=== PATIENT | female | born 1980 | race Caucasian/White ===

== ENCOUNTER 2017-02-20 16:35 | Emergency (ER) | payer MEDICAID ==
[~2017-02-20] VITALS: Ht 167.6 cm; Wt 71.6 kg
[~2017-02-20 16:35] MED LIST: AMOX-291 PO; BENZ200C40 PO; CIPR500T3 PO; COLE1TAB PO; CYCL10TA50 PO; FAMO20TA3 PO; FLUC150T PO; GEMF600T3 PO; INSU100V5; METO10TA82 PO; PENICILLIN VK PO; PROM25TA10 PO
[2017-02-20] MEDS ORDERED: SODIUM CHLORIDE 0.9% 1,000ML IVBOLUS ONE ×2 (17:30→19:30)
[2017-02-20 17:46] LABS: BLOOD UREA NITROGEN 12 mg/dL (7-18)
[2017-02-20] MEDS ORDERED: POTASSIUM CHLORIDE 20 MEQ TAB.ER.PRT ONE (18:59)
[2017-02-20] MEDS ORDERED: INSULIN SINGLE DOSE, ER SQ-INSULIN ONE (18:59)
[2017-02-20] MEDS ORDERED: INSULIN REGULAR 100 UNITS/ML, 3ML VIAL IVPush ONE (19:00)
[2017-02-20] MEDS ORDERED: POTASSIUM CHLORIDE 20 MEQ TAB.ER.PRT PO ONE (19:00)
[2017-02-20 20:31] VITALS: BP 139/96
== END 2017-02-20 20:48 | disposition home or self-care (01) ==
LOC: ED 20:32
DX: E11.65 Type 2 diabetes mellitus with hyperglycemia (principal); Z79.4 Long term (current) use of insulin; I10 Essential (primary) hypertension; E78.00 Pure hypercholesterolemia, unspecified
CPT/HCPCS: 36415; 71010; 80048; 81003; 82010; 82040; 82800; 82962; 83930; 85025; 93005; 96361; 96374; 99285; J7030

== ENCOUNTER 2017-04-02 13:13 | Emergency (ER) | payer MEDICAID ==
[~2017-04-02] VITALS: Ht 167.6 cm; Wt 68.4 kg
[~2017-04-02 13:13] MED LIST changes: -BENZ200C40 PO; +BENZ200C48 PO
[2017-04-02 15:15] VITALS: BP 116/80
== END 2017-04-02 16:48 | disposition home or self-care (01) ==
LOC: ED 15:16
DX: S70.12XA Contusion of left thigh, initial encounter (principal); E11.9 Type 2 diabetes mellitus without complications; K21.9 Gastro-esophageal reflux disease without esophagitis; I10 Essential (primary) hypertension; Z90.49 Acquired absence of other specified parts of digestive tract; Z90.710 Acquired absence of both cervix and uterus; Z88.5 Allergy status to narcotic agent; Z88.8 Allergy status to other drugs, medicaments and biological substances; W22.03XA Walked into furniture, initial encounter; Y93.89 Activity, other specified; Y92.098 Other place in other non-institutional residence as the place of occurrence of the external cause; Y99.8 Other external cause status
CPT/HCPCS: 99284

== ENCOUNTER 2018-03-19 13:50 | Emergency (ER) | payer MEDICAID ==
[~2018-03-19] VITALS: Ht 167.6 cm; Wt 61.0 kg
[2018-03-19] MEDS ORDERED: DIAZEPAM 5 MG TABLET PO ONE (15:00)
[2018-03-19] MEDS ORDERED: KETOROLAC 30 MG/1 ML IM ONE (15:00)
[2018-03-19] MEDS ORDERED: KETOROLAC 30 MG/1 ML ONE (15:01)
[2018-03-19] MEDS ORDERED: DIAZEPAM 5 MG TABLET ONE (15:02)
[2018-03-19] MEDS ORDERED: SODIUM CHLORIDE FLUSH 10ML SYR IVF ONE (16:30)
[2018-03-19] MEDS ORDERED: SODIUM CHLORIDE 0.9% 1,000ML IVBOLUS ONE ×2 (16:30→17:30)
[2018-03-19 16:44] LABS: BASOPHILS # (AUTO) 0.03 x10^3/uL (0-0.1); BASOPHILS % (AUTO) 0 % (0-1); EOSINOPHILS # (AUTO) 0.04 x10^3/uL (0-0.4); EOSINOPHILS % (AUTO) 0 % (1-7); LYMPHOCYTES # (AUTO) 0.76 x10^3/uL (1-3.4); LYMPHOCYTES % (AUTO) 6 % (22-44); MD NO; MEAN CORPUSCULAR HEMOGLOBIN 29.6 pg (27.0-34.8); MEAN CORPUSCULAR HGB CONC 33.7 g/dL (32.4-35.8); MEAN PLATELET VOLUME 7.5 fL (7.4-10.4); MONOCYTES % (AUTO) 4 % (2-9); NEUTROPHILS # (AUTO) 10.73 x10^3/uL (1.8-6.8); NEUTROPHILS % (AUTO) 89 % (42-75); PLATELET COUNT 317 x10^3/uL (130-400); RED BLOOD COUNT 5.29 x10^6/uL (3.82-5.3); RED CELL DISTRIBUTION WIDTH 13.9 % (9.6-15.2)
[2018-03-19 16:51] LABS: ANION GAP 12 mmol/L (5-15); CALCIUM 9.5 mg/dL (8.5-10.1); CHLORIDE 91 mmol/L (98-107)
[2018-03-19 16:54] LABS: TROPONIN I < 0.015 ng/mL (0.000-0.045)
[2018-03-19] MEDS ORDERED: INSULIN REGULAR 100 UNITS/ML, 3ML VIAL ONE (17:55)
[2018-03-19 17:57] VITALS: BP 134/86
[2018-03-19] MEDS ORDERED: INSULIN REGULAR 100 UNITS/ML, 3ML VIAL IVPush ONE (18:00)
== END 2018-03-19 18:55 | disposition home or self-care (01) ==
LOC: ED 17:52
DX: S29.012A Strain of muscle and tendon of back wall of thorax, initial encounter (principal); E11.65 Type 2 diabetes mellitus with hyperglycemia; M10.9 Gout, unspecified; K21.9 Gastro-esophageal reflux disease without esophagitis; I10 Essential (primary) hypertension; E78.00 Pure hypercholesterolemia, unspecified; Z90.49 Acquired absence of other specified parts of digestive tract; Z90.710 Acquired absence of both cervix and uterus; X58.XXXA Exposure to other specified factors, initial encounter; Y93.89 Activity, other specified; Y92.89 Other specified places as the place of occurrence of the external cause; Y99.8 Other external cause status
CPT/HCPCS: 36415; 71046; 72072; 80048; 82040; 82962; 83880; 84484; 85025; 93005; 96361; 96372; 96374; 99285; J1885; J7030